=== PATIENT | male | born 2000 | race Caucasian/White ===

== ENCOUNTER 2019-07-25 09:31 | Day surgery (SDC) | payer BC, OTHER ==
--- NOTE | 2019-07-25 09:53 | ED ---
Abdominal Pain/Male - HPI Summary HPI Summary: 18 y/o M presenting to [facility] c/o abdominal pain starting last night. Patient developed abdominal pain described as soreness last night. He woke up this morning and the pain had moved to his RLQ and back. Described as sharp and 7/ 10. He reports temperature 99.6F, nausea, decreased appetite, constipation. Last bowel movement yesterday morning. No vomiting, sore throat, cough. He has never had symptoms like this. Symptoms aggravated by nothing. Symptoms alleviated by nothing. Medications reviewed. No known drug allergies. No alcohol , recreational drug, tobacco use. No surgical hx. No PMHx. - History of Current Complaint Chief Complaint: EDAbdPain Stated Complaint: ABD PAIN PER PT Time Seen by Provider: 07/25/19 09:41 Hx Obtained From: Patient Onset/Duration: Lasting Hours, Still Present Timing: Constant Severity Initially: Mild Severity Currently: Moderate Pain Intensity: 7 Pain Scale Used: 0-10 Numeric Location: Discrete At: RLQ Radiates: Yes Radiates to: Back Character: Sharp Aggravating Factor(s): Nothing Alleviating Factor(s): Nothing Associated Signs And Symptoms: Positive: Negative - vomiting, sore throat, cough , Other - temperature 99.6F, nausea, decreased appetite, constipation - Allergies/Home Medications Allergies/Adverse Reactions: Allergies Allergy/AdvReac Type Severity Reaction Status Date / Time No Known Allergies Allergy Verified 07/25/19 09:40 Home Medications: Home Medications Oxycodone HCl/Acetaminophen [Percocet 5-325 mg Tablet] 1 each PO Q4H PRN #12 tablet MDD 6 07/25/19 [Rx] PMH/Surg Hx/FS Hx/Imm Hx Endocrine/Hematology History: Denies: Hx Diabetes Cardiovascular History: Denies: Hx Hypertension Sensory History: Reports: Hx Contacts or Glasses Opthamlomology History: Reports: Hx Contacts or Glasses - Surgical History Surgical History: None Infectious Disease History: No Infectious Disease History: Denies: Traveled Outside the [place] in Last 30 Days - Family History Known Family History: Positive: Cardiac Disease, Diabetes, Other - cancer - Social History Alcohol Use: None Hx Substance Use: No Substance Use Type: Reports: None Hx Tobacco Use: No Smoking Status (MU): Never Smoked Tobacco Review of Systems Positive: Other - temp 99.6F Negative: Sore Throat Negative: Cough Positive: Abdominal Pain, Nausea, Other - decreased appetite, constipation. Negative: Vomiting All Other Systems Reviewed And Are Negative: Yes Physical Exam - Summary Physical Exam Summary: Constitutional: Well-developed, Well-nourished, Alert. (-) Distressed Skin: Warm, Dry HENT: Normocephalic; Atraumatic Eyes: Conjunctiva normal Neck: Musculoskeletal ROM normal neck. (-) JVD, (-) Stridor, (-) Tracheal deviation Cardio: Rhythm regular, rate normal, Heart sounds normal; Intact distal pulses; Radial pulses are 2+ and symmetric. (-) Murmur Pulmonary/Chest wall: Effort normal. (-) Respiratory distress, (-) Wheezes, (-) Rales Abd: Soft, tenderness at McBurney's point, (-) Distension, (-) Guarding, (-) Rebound; (+) Rovsing's sign; (-) obturator sign Musculoskeletal: (-) Edema Lymph: (-) Cervical adenopathy Neuro: Alert, Oriented x3 Psych: Mood and affect Normal Triage Information Reviewed: Yes Vital Signs On Initial Exam: Initial Vitals Temp Pulse Resp BP Pulse Ox 99.4 F 118 16 137/93 98 07/25/19 09:38 07/25/19 09:38 07/25/19 09:38 07/25/19 09:38 07/25/19 09:38 Vital Signs Reviewed: Yes Procedures - Sedation Patient Received Moderate/Deep Sedation with Procedure: No Diagnostics - Vital Signs Vital Signs Temp Pulse Resp BP Pulse Ox 07/25/19 09:38 99.4 F 118 16 137/93 98 - Laboratory Result Diagrams: 07/25/19 10:24 07/25/19 10:24 Lab Statement: Any lab studies that have been ordered have been reviewed, and results considered in the medical decision making process. - CT ABD/PEL CT Interpretation Completed By: Radiologist - IMPRESSION: #. Acute appendicitis with predisposing appendicolith at the proximal segment of the appendix. Associated mild periappendiceal inflammatory change and reactive lymph nodes. Negative for periappendiceal abscess. #. Results discussed with Dr. Trujillo 07/25/2019 11:32 AM EDT. ED physician has reviewed this report. Re-Evaluation - Re-Evaluation First Eval Re-Evaluation Time: 11:31 - Radiologist called to report CT ABD/PEL findings Abdominal Pain Male Course/Dx - Course Course Of Treatment: Patient is here with right lower quadrant pain. The patient's story was consistent with appendicitis. Patient had blood performed which showed elevated CRP and leukocytosis. Patient had a CT scan which showed uncomplicated appendicitis. Patient was given Zosyn for appendicitis. Patient was taken to the operating room by surgery. - Diagnoses Provider Diagnoses: Acute appendicitis - Provider Notifications Discussed Care Of Patient With: Julian Bridges - Agrees to take patient to the OR Time Discussed With Above Provider: 11:31 Discharge ED - Sign-Out/Discharge Documenting (check all that apply): Patient Departure - Discharge Plan Condition: Good Disposition: HOME Prescriptions: Oxycodone HCl/Acetaminophen [Percocet 5-325 mg Tablet] 1 each PO Q4H PRN #12 tablet MDD 6 PRN Reason: Pain - Severe Referrals: [facility] [Primary Care Provider] - [facility] [Medical Doctor] - (phone follow up in 1 week [phone]) Additional Instructions: No heavy lifting over 30 lbs for 3 weeks Please call [facility] if worsening pain, fever [phone] - Billing Disposition and Condition Condition: GOOD Disposition: Home - Attestation Statements Document Initiated by Scribe: Yes Documenting Scribe: Kinza Beyer Provider For Whom Ofe is Documenting (Include Credential): Jluis Trujillo MD Scribe Attestation: Kinza Chapman, scribed for Jluis Trujillo MD on 07/25/19 at 1506. Scribe Documentation Reviewed: Yes Provider Attestation: The documentation as recorded by the Kinza suarez accurately reflects the service I personally performed and the decisions made by , Jluis Trujillo MD Status of Scribe Document: Viewed
[2019-07-25] MEDS ORDERED: NS 0.9% 1000 ML** 1,000 ML IV ONE (10:27)
[2019-07-25 10:31] LABS: Hematocrit 45 % (42-52); Hemoglobin 15.6 g/dL (14.0-18.0); Mean Corpuscular HGB Conc 35 g/dL (31-36); Mean Corpuscular Hemoglobin 30 pg (27-31); Mean Corpuscular Volume 86 fL (80-94); Platelet Count 183 10^3/uL (150-450); Red Blood Count 5.19 10^6 /uL (4.18-5.48); Red Cell Distribution Width 13 % (10-15); White Blood Count 14.7 10^3/uL (3.5-10.8)
[2019-07-25 10:35] LABS: ABS Basophils 0.1 10^3/ul (0-0.2); ABS Lymphocytes 1.5 10^3/ul (1.0-4.8); ABS Monocytes 1.6 10^3/ul (0-0.8); ABS Neutrophils 11.5 10^3/ul (1.5-7.7); Eosinophil % 0.2 %; Lymphocyte % 10.2 %
[2019-07-25 10:48] LABS: Albumin 4.7 g/dL (3.2-5.2); Albumin/Globulin Ratio 1.5 (1-3); BUN/Creatinine Ratio 15.8 (8-20); C Reactive Protein 38.39 mg/L (<8.01); Calcium 10.1 mg/dL (8.6-10.3); EGFR African American 122.3 (>60); EGFR Non-African American 101.1 (>60); Globulin 3.2 g/dL (2-4); Potassium 4.2 mmol/L (3.5-5.0); Total Bilirubin 0.9 mg/dL (0.2-1.0); Total Protein 7.9 g/dL (6.4-8.9)
[2019-07-25] MEDS ORDERED: Iohexol 300* (CONTRAST) 10 ML SDV IV ONE (11:15)
[2019-07-25] MEDS ORDERED: Piperacillin/Tazobac ADVAN(*) 3.375 GM in NS 0.9% 100 ML* 100 ML IVPB ONE (11:28)
[2019-07-25 11:30] LABS: Urine Appearance Clear; Urine Bilirubin Negative (Negative); Urine Blood Negative (Negative); Urine Color Yellow; Urine Glucose Negative (Negative); Urine Ketones Negative (Negative); Urine Nitrite Negative (Negative); Urine Protein Negative (Negative); Urine Specific Gravity 1.017 (1.010-1.030); Urine Urobilinogen Negative (Negative)
--- NOTE | 2019-07-25 12:27 | HP ---
CC: [facility]; [facility] HISTORY AND PHYSICAL: DATE OF ADMISSION: 07/25/19 HISTORY OF PRESENT ILLNESS: Mr. Baltazar is a 18-year-old gentleman who presented to the emergency room this morning with worsening onset of abdominal pain. The patient states the pain started yesterday evening, centrally located, he thought it was a stomach ache, it was accompanied with anorexia. No nausea. No vomiting. No diarrhea. The patient woke up this morning and had low-grade fever of 99 and the pain moved to the right lower quadrant. He remained anorexic. No nausea. No vomiting. The patient denies any previous similar s ymptoms. Pain is relieved with rest, worsened with touching at the area or movement. PAST MEDICAL HISTORY: None. PAST SURGICAL HISTORY: None. MEDICATIONS: None. ALLERGIES: No known drug allergies. FAMILY HISTORY: Noncontributory. No family history of ulcerative colitis or Crohn's disease. SOCIAL HISTORY: He lives alone. He is a student, studying music. He is from [facility]. He is a Svpply onsmoker. REVIEW OF SYSTEMS: Low-grade fevers as described. No fever here in the hospital. No shortness of br eath or chest pain. No GERD-like symptoms. No dysuria. No endocrine disorders. No bleeding or tequila tting disorders. No nausea. No vomiting. The patient has never had endoscopy. The patient has neve r been hospitalized. No allergies. PHYSICAL EXAMINATION GENERAL: He is alert and oriented x3, in no apparent distress. VITAL SIGNS: Temperature 99.4, heart rate 118, blood pressure 137/93, O2 sat 98% on room air, respir ations 16. HEENT: Sclerae anicteric. Mucous membranes are moist. NECK: No lymphadenopathy. LUNGS: Clear to auscultation bilaterally. ABDOMEN: Soft, nondistended. Only minimally tender in the right lower quadrant with negative reboun d, negative Rovsing sign, positive psoas sign. EXTREMITIES: Within normal limits. No CVA tenderness. RECTAL EXAM: Not performed. DIAGNOSTIC STUDIES/LAB DATA: Labs reviewed, show white count of 14.7, elevated CRP. Normal LFTs. Urinalysis within normal limits. The patient underwent a CT scan of the abdomen and pelvis, these images were reviewed and consistent with acute appendicitis with appendicolith. RECOMMENDATIONS: Laparoscopic appendectomy. I outlined the details of the procedure, going over the risks, benefits, and alternatives with Mr. Baltazar, we spoke of the possible complications, which inclu de but not limited to bleeding, infection, and injury to adjacent organs and need for additional proc edure, open procedure, potential abscess formation. The patient's questions were answered and we troy ked of the possible alternatives of watchful waiting and antibiotics alone, but I believe that this w ould require hospitalization. I did not recommend this. I feel that the patient would benefit from p rompt surgical intervention and discharge. The patient agreed and he received a course of antibiotic s and we will get the operating room ready. [id number]/[facility] #: [id number]
[2019-07-25] MEDS ORDERED: Propofol* 10 MG/ML 20 ML BTL ONE (12:32)
[2019-07-25] MEDS ORDERED: Rocuronium* 10 MG/ML VIAL ONE (12:32)
[2019-07-25] MEDS ORDERED: Midazolam* 1 MG/ML 2 ML VIAL (2 MG) ONE (12:33)
[2019-07-25] MEDS ORDERED: Lidocaine 2% PF * 5 ML VIAL ONE (12:33)
[2019-07-25] MEDS ORDERED: fentaNYL* 50 MCG/ML 2 ML VIAL (100 MCG VIAL) ONE (12:33)
[2019-07-25] MEDS ORDERED: Bupivacaine 0.25% EPI 200,000* 30 ML SDV ONE (12:36)
[2019-07-25] MEDS ORDERED: Succinylcholine* 20 MG/ML 10 ML VIAL ONE ×2 (12:37→14:20)
[2019-07-25] MEDS ORDERED: Ondansetron INJ* 2 MG/ML VIAL ONE (13:34)
[2019-07-25] MEDS ORDERED: Metoclopramide IV* 5 MG/ML 2 ML VIAL ONE (13:34)
[2019-07-25] MEDS ORDERED: Ketorolac INJ* 30 MG/ML 1 ML VIAL ONE (13:34)
[2019-07-25] MEDS ORDERED: Dexamethasone IV* 4 MG/ML 1 ML (4 MG) ONE (13:34)
[2019-07-25] MEDS ORDERED: oxyCODONE TAB* 5 MG TAB PO PRN (13:48)
[2019-07-25] MEDS ORDERED: DiMENhydriNATE IV* 50 MG/ML VIAL IV PUSH PRN (13:48)
[2019-07-25] MEDS ORDERED: Naloxone* 0.4 MG/ML 1 ML VIAL IV PRN (13:48)
[2019-07-25] MEDS ORDERED: Sugammadex * 200 MG/2 ML VIAL IV PUSH ONE (14:12)
[2019-07-25] MEDS ORDERED: Acetaminophen IV 1GM/100ML * 100 ML ONE (14:26)
--- NOTE | 2019-07-25 14:37 | OP ---
Operative Report - Blank - Operative Report Date of Operation: 07/25/19 Note: Pre-OP Diagnoses: acute appendicitis Post-op Diagnosis: same Procedure: Laparoscopic appendectomy Surgeon: Yuliana Asst: none Anethesia: GETA EBL: minimal IVF: crystalloid Specimen: appendix Drains: none
[2019-07-25] MEDS: fentaNYL* 50 MCG/ML 2 ML VIAL (100 MCG VIAL) IV PRN ×4 (14:55→15:23)
[2019-07-25 15:11] VITALS: BP 133/76
--- NOTE | 2019-07-25 17:14 | OP ---
CC: [facility] OPERATIVE REPORT: DATE OF OPERATION: 07/25/19 DATE OF : 89 SURGEON: Julian Bridges MD BUSINESS OFFICE ASSOCIATE: None. ANESTHESIOLOGIST: Dr. Wood. ANESTHESIA: General. PRE-OP DIAGNOSIS: Acute appendicitis. POST-OP DIAGNOSIS: Acute appendicitis. OPERATIVE PROCEDURES: Laparoscopic appendectomy. ESTIMATED BLOOD LOSS: Minimal. FLUID GIVEN: Crystalloid. SPECIMEN: Appendix, nonperforated. DESCRIPTION OF PROCEDURE: The patient identified in preoperative area, marked and consent signed, br ought to the operating room and placed on the operating table in supine position. The patient alread y had preoperative antibiotics. Sequential devices were then placed on bilateral lower extremities. General anesthesia was induced. The patient's abdomen was clipped off hair and prepped and draped i n standard surgical fashion and a time-out was performed. An infraumbilical incision was made, this was deepened down to the anterior fascia which was elevated and incised. A stay suture placed with 0-Vicryl and entry into the abdominal cavity was made under direct vision and a 12-mm blunt trocar was inserted. The abdomen was allowed to insufflate to a pres sure of 12 mmHg. The patient tolerated the insufflation well. Camera was inserted through the troca r and review of the abdomen showed no fluid, normal-appearing bowel. Additional trocars were then placed in following positions; a 5 mm in the suprapubic area and 5 mm in the left lower quadrant and table was repositioned. At this point, a large dilated appendix was denise ntified that adhered to the distal small bowel which was bluntly removed and retracted superiorly. T his allowed us to move the appendix out of the pelvis taking care not to puncture it. It was large a nd dilated and we took the lateral attachments with cautery and scissors and then took the peritoneum off of the mesoappendix with a cautery to free this from the small bowel mesentery. This then allow ed us to bring the appendix anteriorly and a window was made at the base of the appendix through heal thy tissue and a 45-mm graff GARRY stapling device was fired through this. We then cleared up the mesoap pendix and then fired another 45-mm graff GARRY stapling device. The appendix was placed in an endoscopi c retrieval bag and placed over the liver. Review of the staple line showed no enteric contents. There was mild oozing at the portion of the me soappendix staple line and this was controlled with clip signal maintainer helper. The pelvis showed some ascites and this was absorbed with a gauze that was inserted and removed. Next, table was repositioned back to neutral. Again, hemostasis was excellent and the appendix was r emoved through the umbilical port with an endoscopic retrieval bag. We did have to open up the bag t o get the specimen out and we did puncture the appendix at this time, but were able to get it all out with the bag and passed it off as specimen. I irrigated the wound, I then used a suture that had be en placed earlier to close the fascia. We placed 2 additional 0-Vicryl sutures. I reinsufflated the abdomen to check that these closures at the umbilical port site did not hop picker any underlying struc tures and then allowed the abdomen to collapse with the use of smoke evacuator through a filter and t rocars were then removed and all 3 skin incisions were reapproximated with 4-0 Monocryl subcuticular sutures followed by Steri-Strips and sterile dressing. [id number]/[facility] #: [id number]
== END 2019-07-25 15:50 | disposition home or self-care (01) ==
LOC: ED 09:31 → OR 12:54
PROVIDERS: ATTEND Surgery
DX: K35.80 Unspecified acute appendicitis (principal); R10.31 Right lower quadrant pain
CPT/HCPCS: 36415; 74177; 80053; 81003; 85025; 86140; 88304; 96374; 99282; C1776; J0330; J1100; J1885; J2250; J2405; J2543; J2704; J2765; J3010; Q9967